=== PATIENT | male | born 1985 | race Caucasian/White ===

== ENCOUNTER 2017-01-18 21:49 | Emergency (ER) | payer SELFPAY ==
[2017-01-18 22:13] VITALS: TEMP 97.8; BMI 33.5
--- NOTE | 2017-01-18 22:21 | PDOC ---
History of Present Illness - History of Present Illness Initial Comments: 01/18/17 23:11 The patient is a 31 year old male, with a significant past medical history of hypertension and asthma, who presents to the emergency department BIBA s/p mechanical fall with left shoulder pain and possible dislocation. The patient presents in a sling which was placed by ems. He reports he was running from a dog and fell with his hands outstretched. He reports abrasions to the palmar aspect of his hands bilaterally. He reports feeling immediate left shoulder pain and reports hearing a pop. He denies numbness or tingling to his left hand or fingers. He reports his last tetanus booster was in 2013. He denies chest pain, shortness of breath, headache and dizziness. He denies fever, chills, nausea, vomit, diarrhea and constipation. He denies dysuria, frequency, urgency and hematuria. Allergies: NKDA <Nina Cortez - Last Filed: 01/19/17 01:06> <Diana Sullivan - Last Filed: 01/19/17 05:58> - General Chief Complaint: Injury Stated Complaint: FALL Past History <Nina Cortze - Last Filed: 01/19/17 01:06> - Psycho/Social/Smoking Cessation Hx Suicidal Ideation: No Smoking History: Never smoked Information on smoking cessation initiated: No Hx Alcohol Use: No Drug/Substance Use Hx: No <Diana Sullivan - Last Filed: 01/19/17 05:58> - Past Medical History Allergies/Adverse Reactions: Allergies Allergy/AdvReac Type Severity Reaction Status Date / Time No Known Allergies Allergy Verified 01/18/17 22:11 Home Medications: Ambulatory Orders Bacitracin - [Bacitracin Topical Ointment -] 1 applic TP BID #10 applic Cephalexin Monohydrate [Keflex -] 250 mg PO Q6H #28 capsule 01/19/17 Review of Systems - Review of Systems Able to Perform ROS?: Yes Comments:: 01/18/17 23:12 GENERAL/CONSTITUTIONAL: No fever or chills. No weakness. HEAD, EYES, EARS, NOSE AND THROAT: No change in vision. No ear pain or discharge. No sore throat. CARDIOVASCULAR: No chest pain or shortness of breath. RESPIRATORY: No cough, wheezing, or hemoptysis. GASTROINTESTINAL: No nausea, vomiting, diarrhea or constipation. GENITOURINARY: No dysuria, frequency, or change in urination. MUSCULOSKELETAL: (+) Left shoulder pain. No muscle swelling or pain. No neck or back pain. SKIN: No rash NEUROLOGIC: No headache, vertigo, loss of consciousness, or change in strength/ sensation. ENDOCRINE: No increased thirst. No abnormal weight change. HEMATOLOGIC/LYMPHATIC: No anemia, easy bleeding, or history of blood clots. ALLERGIC/IMMUNOLOGIC: No hives or skin allergy. <Nina Cortez - Last Filed: 01/19/17 01:06> *Physical Exam - Vital Signs Last Vital Signs Temp Pulse Resp BP Pulse Ox 97.8 F 99 H 14 117/70 99 01/18/17 22:11 01/18/17 22:11 01/18/17 22:11 01/18/17 22:11 01/18/17 22:11 - Physical Exam Comments: 01/18/17 23:12 GENERAL: Awake, alert, and fully oriented, in no acute distress HEAD: No signs of trauma EYES: PERRLA, EOMI, sclera anicteric, conjunctiva clear ENT: Auricles normal inspection, hearing grossly normal, nares patent, oropharynx clear without exudates. Moist mucosa NECK: Normal ROM, supple, no lymphadenopathy, JVD, or masses LUNGS: Breath sounds equal, clear to auscultation bilaterally. No wheezes, and no crackles HEART: Regular rate and rhythm, normal S1 and S2, no murmurs, rubs or gallops ABDOMEN: Soft, nontender, normoactive bowel sounds. No guarding, no rebound. No masses EXTREMITIES: (+) minimal soft tissue swelling and mild tenderness over anterior left shoulder, Pt in left arm sling. No clubbing or cyanosis. No cords, erythema NEUROLOGICAL: Cranial nerves II through XII grossly intact. Normal speech, normal gait SKIN: Warm, Dry, normal turgor, no rashes or lesions noted. <Nina Cortez - Last Filed: 01/19/17 01:06> - Vital Signs Last Vital Signs Temp Pulse Resp BP Pulse Ox 97.8 F 99 H 14 117/70 99 01/18/17 22:11 01/18/17 22:11 01/18/17 22:11 01/18/17 22:11 01/18/17 22:11 <Diana Sullivan - Last Filed: 01/19/17 05:58> Procedures - Joint Reduction Left Joint Reduction Site: left: Shoulder Pre-Procedure NV Exam: normal Conscious Sedation: Yes (versed 4mg and fentanyl 100mcg) Anesthesia: Versed Amt. of medication administered: 4mg Procedure: Other (external rotation) Post-Procedure NV Exam: normal Post Joint Reduction Film: joint reduced Immobilized: Yes <Diana Sullivan - Last Filed: 01/19/17 05:58> ED Treatment Course - Medications Given in the ED: ED Medications Discontinued Medications Generic Name Dose Route Start Last Admin Trade Name Dickq PRN Reason Stop Dose Admin Morphine Sulfate 2 mg 01/18/17 22:23 01/18/17 22:56 Morphine Injection - IVPUSH 01/18/17 22:24 2 mg ONCE ONE Administration <Nina Cortez - Last Filed: 01/19/17 01:06> Medical Decision Making - Medical Decision Making 01/19/17 05:56 tetanus UTD 2013 [place] Pt was running away from a [facility], and fell with abrasions to hands and forearms and abdomen. Pt given ancef IV 1 dose in the ER and saline and morphine for the pain initially. Conscious sedation also given and the joint reduced easily. Exam is normal. Pt will follow with ortho. <Diana Sullivan - Last Filed: 01/19/17 05:58> *DC/Admit/Observation/Transfer - Attestations Scribe Attestion: 01/18/17 23:14 Documentation prepared by Nina Cortez, acting as medical technologist prn for Diana Sullivan MD <Nina Cortez - Last Filed: 01/19/17 01:06> - Discharge Dispostion Admit: No <Diana Sullivan - Last Filed: 01/19/17 05:58> Diagnosis at time of Disposition: Anterior shoulder dislocation - Discharge Dispostion Disposition: HOME Condition at time of disposition: Stable - Prescriptions Prescriptions: Bacitracin - [Bacitracin Topical Ointment -] 1 applic TP BID #10 applic Cephalexin Monohydrate [Keflex -] 250 mg PO Q6H #28 capsule - Patient Instructions Printed Discharge Instructions: Shoulder Dislocation
[2017-01-18] MEDS ORDERED: morphine CARPU-JECT 2 MG/1 ML DISP.SYRIN IVPUSH ONE (22:23)
[2017-01-18] MEDS ORDERED: morphine CARPU-JECT 2 MG/1 ML DISP.SYRIN ONE (22:45)
[2017-01-18] MEDS ORDERED: MIDAZOLAM HCL 2 MG/2 ML SINGLE DOSE VIAL ONE (23:47)
[2017-01-19] MEDS ORDERED: SODIUM CHLORIDE 0.9% 500 ML INFUS.BAG IV ONE (00:02)
[2017-01-19] MEDS ORDERED: MIDAZOLAM HCL 2 MG/2 ML SINGLE DOSE VIAL IVPUSH ONE ×2 (00:04→00:49)
[2017-01-19] MEDS ORDERED: CEFAZOLIN 1 GM in DEXTROSE 5%-WATER - 50 ML IVPB ONE (01:06)
[2017-01-19] MEDS ORDERED: BACITRACIN 15 GM TUBE TOPICAL OINTMENT TP ONE (01:07)
[2017-01-19] MEDS ORDERED: KETOROLAC TROMETHAMINE 30 MG/1 ML VIAL IVPUSH ONE (01:52)
[2017-01-19] MEDS ORDERED: BACITRACIN 0.9 GM PACKET ONE (02:16)
[2017-01-19] MEDS ORDERED: KETOROLAC TROMETHAMINE 30 MG/1 ML VIAL ONE (02:16)
[2017-01-19] MEDS ORDERED: CEFAZOLIN (PRE-DOCKED) 50 ML IVPB ONE (02:17)
[2017-01-19 07:22] VITALS: BP 125/85; PULSE 77
== END 2017-01-19 02:47 | disposition home or self-care (01) ==
LOC: JER 21:49
PROC: 3E03329 Introduction of Other Anti-infective into Peripheral Vein, Percutaneous Approach (ICD-10-PCS; principal; 2017-01-18)
PROC: 3E033NZ Introduction of Analgesics, Hypnotics, Sedatives into Peripheral Vein, Percutaneous Approach (ICD-10-PCS; 2017-01-18)
PROC: 3E0333Z Introduction of Anti-inflammatory into Peripheral Vein, Percutaneous Approach (ICD-10-PCS; 2017-01-18)
PROC: 0RSKXZZ Reposition Left Shoulder Joint, External Approach (ICD-10-PCS; 2017-01-18)
PROC: 2W39XYZ Immobilization of Left Upper Extremity using Other Device (ICD-10-PCS; 2017-01-18)
DX: S43.085A Other dislocation of left shoulder joint, initial encounter (principal); S60.512A Abrasion of left hand, initial encounter; S60.511A Abrasion of right hand, initial encounter; S30.811A Abrasion of abdominal wall, initial encounter; W18.39XA Other fall on same level, initial encounter; Y93.02 Activity, running; Y92.89 Other specified places as the place of occurrence of the external cause
CPT/HCPCS: 73030-TC-LT; 99282-25

== ENCOUNTER 2019-02-23 17:03 | Emergency (ER) | payer SELFPAY ==
--- NOTE | 2019-02-23 17:11 | PDOC ---
Rapid Medical Evaluation Time Seen by Provider: 02/23/19 17:09 Medical Evaluation: Allergies Allergy/AdvReac Type Severity Reaction Status Date / Time No Known Allergies Allergy Verified 01/18/17 22:11 02/23/19 17:10 This patient had a brief in-person evaluation in triage CC: chest discomfort this am and one episode of vomiting Reports symptoms intermittenly x "months". Reports burning sensation in chest PE: NAD unlabored breathing non tender chest orders:ekg This patient will proceed to the ED for further evaluation Discharge Disposition - Diagnosis Chest discomfort - Referrals - Patient Instructions - Post Discharge Activity
[2019-02-23 17:12] VITALS: BP 121/73; PULSE 74; TEMP 98.5; BMI 36.1
[2019-02-23] MEDS ORDERED: PANTOPRAZOLE SODIUM 40 MG VIAL IVPUSH ONE (19:35)
[2019-02-23] MEDS ORDERED: FAMOTIDINE 20 MG/50 ML IVPB 20 MG/50 ML MG IVPB ONE (19:35)
[2019-02-23] MEDS ORDERED: ONDANSETRON 4 MG/2 ML VIAL IVPUSH ONE (19:45)
--- NOTE | 2019-02-23 19:45 | PDOC ---
History of Present Illness - General Chief Complaint: Chest Pain Stated Complaint: CHEST PAIN Time Seen by Provider: 02/23/19 17:09 - History of Present Illness Initial Comments: 02/23/19 19:43 CHIEF COMPLAINT: chest discomfort, "acid reflux" HISTORY OF PRESENT ILLNESS: 33 yo M with hx of asthma and HTN presents with chest discomfort x "months," particularly in the mornings. Patient states "it feels like reflux or something, it's like burning, and I feel nauseous." Denies any current chest pain or shortness of breath. No recent travel or sick contacts. PAST MEDICAL HISTORY: Denies past medical history FAMILY HISTORY: Denies SOCIAL HISTORY: Denies tobacco, alcohol, illicit drug use. SURGICAL HISTORY: Denies ALLERGIES: No known drug allergies REVIEW OF SYSTEMS General/Constitutional: Denies fever or chills. Denies weakness. HEENT: Denies change in vision. Denies ear pain or discharge. Denies sore throat. Cardiovascular: Denies chest pain or shortness of breath. Respiratory: Denies cough, wheezing, or hemoptysis. Gastrointestinal: "Burping, acid reflux, feel like I'm nauseous." Denies nausea , vomiting, diarrhea or constipation. Denies rectal bleeding. Genitourinary: Denies dysuria, frequency, or change in urination. Musculoskeletal: Denies joint or muscle swelling or pain. Denies neck or back pain. Skin and breasts: Denies rash or easy bruising. Neurologic: Denies headache, vertigo, loss of consciousness, or loss of sensation. PHYSICAL EXAM General Appearance: Well-appearing, appropriately dressed. No apparent distress. HEENT: EOMI, PERRLA, normal ENT inspection, normal voice, TMs normal, pharynx normal. No conjunctival pallor. No photophobia, scleral icterus. Neck: Supple. Trachea midline. No tenderness, rigidity, carotid bruit, stridor , lymphadenopathy, or thyromegaly. Respiratory/Chest: Lungs CTAB. No shortness of breath, chest tenderness, respiratory distress, accessory muscle use. No crackles, rales, rhonchi, stridor , wheezing, dullness Cardiovascular: RRR. S1, S2. No JVD, murmur, bradycardia, tachycardia. Vascular Pulses: Dorsalis-Pedis (R): 2+, Dorsalis-Pedis (L): 2+ Gastrointestinal/Abdominal: Normal bowel sounds. Abdomen soft, non-distended. No tenderness or rebound tenderness. No organomegaly, pulsatile mass, guarding , hernia, hepatomegaly, splenomegaly. Lymphatic: No adenopathy, tenderness. Musculoskeletal/Extremities: Normal inspection. FROM of all extremities, normal capillary refill. Pelvis Stable. No CVA tenderness. No tenderness to extremities, pedal edema, swelling, erythema or deformity. Integumentary: Appropriate color, dry, warm. No cyanosis, erythema, jaundice or rash Neurologic: residential direct support professional II-XII intact. Fully oriented, alert. Appropriate mood/affect. Motor strength 5/5. No appreciable EOM palsy, facial droop or sensory deficit. 02/23/19 19:45 Past History - Past Medical History Allergies/Adverse Reactions: Allergies Allergy/AdvReac Type Severity Reaction Status Date / Time No Known Allergies Allergy Verified 02/23/19 17:12 Home Medications: Ambulatory Orders Famotidine [Pepcid] 20 mg PO BID #30 tablet 02/23/19 Pantoprazole Sodium [Protonix] 40 mg PO DAILY #14 tablet. 02/23/19 Anemia: No Asthma: Yes Cancer: No Cardiac Disorders: No CVA: No COPD: No DVT: No Dementia: No Diabetes: No Dialysis: No GI Disorders: No Disorders: No HTN: Yes (not on meds) Hypercholesterolemia: No Kidney Stones: No Liver Disease: No Psychiatric Problems: No Seizures: No Thyroid Disease: No Lung CA: No - Suicide/Smoking/Psychosocial Hx Smoking History: Current every day smoker Number of Cigarettes Smoked Daily: 2 Information on smoking cessation initiated: No Hx Alcohol Use: No Drug/Substance Use Hx: No Substance Use Type: Marijuana *Physical Exam - Vital Signs Last Vital Signs Temp Pulse Resp BP Pulse Ox 98.5 F 74 19 121/73 100 02/23/19 17:10 02/23/19 17:10 02/23/19 17:10 02/23/19 17:10 02/23/19 17:10 Medical Decision Making - Medical Decision Making 02/24/19 19:24 33 yo M with hx of asthma and HTN presents with chest discomfort x "months," particularly in the mornings. clinical presentation consistent with GERD. pepcid, protonix given. Pt to follow up with GI. *DC/Admit/Observation/Transfer Diagnosis at time of Disposition: Acid reflux Qualifiers: Esophagitis presence: without esophagitis Qualified Code(s): K21.9 - Gastro- esophageal reflux disease without esophagitis - Discharge Dispostion Disposition: HOME Condition at time of disposition: Stable Decision to Admit order: No - Prescriptions Prescriptions: Famotidine [Pepcid] 20 mg PO BID #30 tablet Pantoprazole Sodium [Protonix] 40 mg PO DAILY #14 tablet.dr - Referrals Referrals: Janet Becerril MD [Staff Physician] - - Patient Instructions Printed Discharge Instructions: DI for Gastroesophageal Reflux Disease (GERD) - Post Discharge Activity Forms/Work/School Notes: Back to Work
--- NOTE | 2019-02-24 14:38 | EKG ---
Test Reason : Blood Pressure : / mmHG Vent. Rate : 075 BPM Atrial Rate : 075 BPM P-R Int : 138 ms QRS Dur : 088 ms QT Int : 382 ms P-R-T Axes : 047 016 043 degrees QTc Int : 426 ms NORMAL SINUS RHYTHM NORMAL ECG NO PREVIOUS ECGS AVAILABLE Confirmed by WALLY DUFF MD ([id number]) on 02/24/2019 2:38:14 PM Referred By: Confirmed By:WALLY DUFF MD
== END 2019-02-23 19:57 | disposition home or self-care (01) ==
LOC: JER 17:03
DX: K21.9 Gastro-esophageal reflux disease without esophagitis (principal); F17.210 Nicotine dependence, cigarettes, uncomplicated; I10 Essential (primary) hypertension; J45.909 Unspecified asthma, uncomplicated
CPT/HCPCS: 93005; 93010; 99283-25

== ENCOUNTER 2023-11-25 08:19 | Emergency (ER) | payer SELFPAY ==
[2023-11-25 08:26] VITALS: BP 130/84; PULSE 74; RESP 16; TEMP 97.9; BMI 36.9
[2023-11-25] MEDS ORDERED: oxyCODONE HCL 5 MG TABLET ONE (09:24)
[2023-11-25] MEDS: oxyCODONE HCL 5 MG TABLET PO ONE (09:27)
== END 2023-11-25 10:17 | disposition home or self-care (01) ==
LOC: JERFT 08:19
DX: M25.571 Pain in right ankle and joints of right foot (principal); S93.401A Sprain of unspecified ligament of right ankle, initial encounter; S90.811A Abrasion, right foot, initial encounter; X50.1XXA Overexertion from prolonged static or awkward postures, initial encounter
CPT/HCPCS: 73610-TC-RT-FY; 73630-TC-RT-FY; 99283-25